=== PATIENT | female | born 1950 | race Two or more races ===

== ENCOUNTER 2016-10-23 09:35 | Emergency (ER) | payer SELFPAY ==
--- NOTE | 2016-10-23 16:46 | ER ---
ADMIT: 10/23/2016 RM/LOC: ER [facility] MR#: [id number] [place], [place] [id number] SWEETIE MUNOZ Gladys [address] [place] [address] Emergency Room Report SEX: F AGE: 66 : 1950 DATE: 10/23/2016 ADDENDUM: A 66-year-old [place] female coming in with multiple complaints of hypertension. She states her stomach hurts sometimes, she has incontinence. At this time, we check some urine on her and that was negative. We did look she does not have any significant cystocele or rectocele at this time. She delivered twice that we know. I spoke Dr. Osorio's office. We restarted her on lisinopril 2.5 mg p.o. because she was out of it. The patient is on MiraLAX maybe cramping. I gave her little Bentyl just use p.r.n. and if she has some cramping. I spoke with Dr. Sanabria. She will need to see her this for her incontinence in the near future. CONDITION ON DISCHARGE: Good. Ebenezer Lainez MD/ erika JOB #: [id number] CC: Ebenezer Lainez MD, Attending Physician Lisa Sanabria MD, Family Physician
== END 2016-10-23 11:37 | disposition home or self-care (01) ==
LOC: ER 09:35
DX: N39.3 Stress incontinence (female) (male) (principal); I10 Essential (primary) hypertension; J45.909 Unspecified asthma, uncomplicated; Z79.899 Other long term (current) drug therapy